=== PATIENT | male | born 1980 | race Caucasian/White ===

== ENCOUNTER 2020-08-17 07:19 | Emergency (ER) | payer BC, SELFPAY ==
[2020-08-17 07:32] VITALS: BP 120/79; PULSE 60; RESP 17; TEMP 36.9; O2SAT 100; BMI 21.2
--- NOTE | 2020-08-17 07:35 | XR_ITS ---
PROCEDURE: XR CHEST 2V CLINICAL HISTORY: cough COMPARISON: No exams were available for comparison FINDINGS: The cardiomediastinal silhouette and pulmonary vascularity are within normal limits. There is mild hyperinflation. No lobar consolidation or collapse. No acute bony abnormalities. IMPRESSION: Hyperinflation which may be seen with small airway disease otherwise negative Dictated by: Edgardo Alexander MD 08/17/2020 08:51 Edgardo Alexander MD in [place] 08/17/2020 08:51
[2020-08-17 07:57] LABS: Strep Scrn Group A (Rapid) Negative (Negative)
--- NOTE | 2020-08-17 09:01 | [facility].EDURI ---
ED Disposition Clinical Impression: Viral infection Disposition: Home, Self-Care Condition on Discharge: Good Instructions: DI for Acute Bronchitis Prescriptions: Cholecalciferol (Vitamin D3) [Dialyvite Vitamin D3 Max] 50,000 unit PO WEEKLY 30 Days #4 tab Transmission Status: Pending to [facility] methylPREDNISolone [Medrol 4mg tab] 4 mg PO DIRECTED #21 tab Transmission Status: Pending to [facility] Referrals: PCP,No [Primary Care Provider] - - Critical Care Critical Care Time: No Attestation: On 08/17/20, the high probability of a clinically significant, sudden or life threatening deterioration of the following system(s) required my full and direct attention, intervention and personal management. The time I documented below is in addition to time spent performing reported procedures but includes the following listed in this critical care notation. Medical Decision Making - Medical Records Medical records reviewed: Yes: I reviewed the patient's medical records. - Enoc Inquiry Pt receiving controlled substance: No Vital Signs: 08/17/20 07:32 Temperature 98.5 F Temperature Source Oral Pulse Rate [Right Radial] 60 Respiratory Rate 17 Blood Pressure [Right Arm] 120/79 Blood Pressure Mean [Right Arm] 92 02 Sat by Pulse Oximetry 100 Oxygen Delivery Method Room Air - Lab Data Lab results reviewed: Yes: I reviewed the patient's lab results. Lab Results 08/17/20 07:25: Group A Strep Rapid Negative Orders (Tests/Meds): ORDERS Category Date Time Status Covid-19 Nasal PCR Sendout Dinh Stat Lab 08/17/20 08:00 Received Rapid Influenza A&B Antigens Stat Lab 08/17/20 07:25 Received Strep Screen Confirmation Stat Micro 08/17/20 07:25 Received URI/Sore Throat HPI - General Chief Complaint: Upper Respiratory Infection Stated Complaint: sore throat,cough Time Seen by Provider: 08/17/20 09:00 Mode of Arrival: Ambulatory Source of Information: Patient Limitations: No Limitations Description of Symptoms (Recalled from ER Triage Doc. by RN): pt presents to ed with c/o sore throat, cough and fever up to 101 at home. symptoms began last night. pt denies any known exposure to covid but states he wants tested. - History of Present Illness HPI Narrative: 39-year-old male presents the ED with fever and sore throat x2 days. Patient states that the sore throat came on yesterday and he felt a subjective fever on Friday. Patient denies any other acute symptoms. Patient denies any cough or shortness of breath. Patient denies any headache patient also denies any loss of taste or smell. Patient denies any body aches or malaise. - Related Data Home Medications Medication Instructions Recorded Confirmed buprenorphine 8 mg-naloxone 2 mg 2 tab SUBLINGUAL DAILY tab 05/16/20 07/18/20 sublingual tablet Previous Rx's Medication Instructions Recorded cariprazine 1.5 mg capsule 1.5 mg PO DAILY #30 cap 07/18/20 Cholecalciferol (Vitamin D3) 50,000 unit PO WEEKLY 30 Days #4 08/17/20 [Dialyvite Vitamin D3 Max] tab methylPREDNISolone [Medrol 4mg 4 mg PO DIRECTED #21 tab 08/17/20 tab] Allergies Allergy/AdvReac Type Severity Reaction Status Date / Time No Known Allergies Allergy Verified 08/17/20 07:34 [facility] History - Hepatitis A Screen Drug use history?: No High risk sexual behaviors?: No History of sexually transmitted infection?: No Currently employed?: No Childcare worker?: No Do you have indoor plumbing?: Yes Do you have electricity?: Yes Attestation statement:: This patient has been screened for Hepatitis A risk factors. I have reviewed the patient's past medical history: Yes Medical History: Denies:: Cancer, Diabetes Mellitus Type 1, Diabetes Mellitus Type 2, MRSA Amputation: No Fractures: No - Social History Smoking Status: Never smoker Tobacco Type: smokeless tobacco # Packs/Day (cigarettes): 1 Alcohol I
[2020-08-17 09:09] VITALS: BP 115/70; PULSE 56; RESP 15; TEMP 36.9; O2SAT 99
[2020-08-18 14:05] LABS: Covid-19 Nasal PCR Sendout Lex NOT DETECTED
== END 2020-08-17 09:11 | disposition home or self-care (01) ==
PROVIDERS: Emergency Provider Emergency Medicine
DX: B34.9 Viral infection, unspecified (principal); Z20.828 Contact with and (suspected) exposure to other viral communicable diseases; F17.290 Nicotine dependence, other tobacco product, uncomplicated
CPT/HCPCS: 71046; 87275; 87276; 87430; 99283; U0004